=== PATIENT | male | born 1955 | race Caucasian/White ===

== ENCOUNTER 2018-10-15 11:09 | Emergency (ER) | payer MEDICAID, OTHER ==
[~2018-10-15] VITALS: Ht 165.1 cm; Wt 60.0 kg
[2018-10-15] MEDS ORDERED: QUET300T19 PO (11:22)
[2018-10-15] MEDS ORDERED: VALP250C3 PO (11:22)
[2018-10-15] MEDS ORDERED: DIPH50CA38 PO (11:22)
[2018-10-15] MEDS ORDERED: HALO10TA13 PO (11:22)
[2018-10-15] MEDS ORDERED: DIVA250T45 PO (11:22)
[2018-10-15] MEDS ORDERED: CHLO100T22 PO (11:22)
[2018-10-15 11:55] LABS: BASOPHILS % 0.4 % (0.0-2.0); EOSINOPHILS % 0.1 % (0.0-5.0); HEMATOCRIT. 32.7 % (42.0-52.0); HEMOGLOBIN. 11.5 g/dL (14.0-18.0); LYMPHOCYTES % 17.6 % (20.0-50.0); MEAN CORPUSCULAR HEMOGLOBIN 31.5 pg (28.0-32.0); MEAN CORPUSCULAR VOLUME 89.8 fL (80.0-94.0); MEAN PLATELET VOLUME 7.5 fl (7.4-10.4); MONOCYTES % 8.8 % (2.0-8.0); NEUTROPHILS % 73.1 % (40.0-76.0); PLATELET 256 x1000/uL (130-400); RED BLOOD CELL COUNT 3.64 mill/uL (4.7-6.1); RED CELL DISTRIBUTION WIDTH 13.6 % (11.6-14.6)
[2018-10-15 12:02] LABS: CHLORIDE 103 mEq/L (98-107)
[2018-10-15 12:03] LABS: INR 1.1
[2018-10-15] MEDS: HALOPERIDOL LACTATE 5MG/ML VIAL IM ONE ×2 (18:43→18:49)
[2018-10-15] MEDS ORDERED: OLANZAPINE 10 MG/VIAL IM ONE (19:00)
[2018-10-15 19:43] LABS: ETHANOL BLOOD < 10 mg/dL
[2018-10-16] MEDS ORDERED: LORAZEPAM 2MG/ML CPJ IM ONE (10:00)
[2018-10-16] MEDS ORDERED: DIPHENHYDRAMINE 50MG/ML VIAL IM ONE (10:00)
[2018-10-16] MEDS ORDERED: HALOPERIDOL LACTATE 5MG/ML VIAL IM ONE ×3 (10:00→20:30)
[2018-10-16] MEDS ORDERED: ZIPRASIDONE MESYLATE 20MG/VIAL IM ONE (14:00)
[2018-10-17] MEDS ORDERED: HALOPERIDOL LACTATE 5MG/ML VIAL IM ONE (09:15)
[2018-10-17] MEDS ORDERED: LORAZEPAM 2MG/ML CPJ IM ONE (09:45)
[2018-10-17] MEDS ORDERED: OLANZAPINE 10 MG/VIAL IM ONE (11:00)
[2018-10-17] MEDS ORDERED: DIPHENHYDRAMINE 50MG CAPSULE PO SCH (14:30)
[2018-10-17] MEDS ORDERED: HALOPERIDOL 5MG TABLET PO SCH (14:30)
[2018-10-17] MEDS: LORAZEPAM 1MG TABLET PO SCH (16:52)
[2018-10-18] MEDS: LORAZEPAM 1MG TABLET PO SCH (01:44)
[2018-10-18] MEDS ORDERED: OLANZAPINE 10 MG/VIAL IM ONE (11:15)
[2018-10-18] MEDS ORDERED: LORAZEPAM 2MG/ML CPJ IM ONE (11:15)
[2018-10-18] MEDS ORDERED: DIPHENHYDRAMINE 50MG CAPSULE PO PRN ×2 (12:15→12:16)
[2018-10-18] MEDS ORDERED: LORAZEPAM 1MG TABLET PO PRN ×2 (12:15→12:16)
[2018-10-18] MEDS ORDERED: HALOPERIDOL 5MG TABLET PO PRN ×2 (12:15→12:16)
[2018-10-18] MEDS ORDERED: OLANZAPINE 10 MG/VIAL IM NR (12:45)
[2018-10-18] MEDS ORDERED: LORAZEPAM 2MG/ML CPJ IM NR (12:45)
[2018-10-18 20:59] VITALS: BP 148/98
== END 2018-10-18 21:12 | disposition home or self-care (01) ==
LOC: ER 11:09 → SUPCPDRO 10-17 14:28 → CANBEDREQ 10-17 14:36 → ER 10-18 21:12
DX: S42.201A Unspecified fracture of upper end of right humerus, initial encounter for closed fracture (principal); F41.9 Anxiety disorder, unspecified; R56.9 Unspecified convulsions; X58.XXXA Exposure to other specified factors, initial encounter; Y93.9 Activity, unspecified; Y92.9 Unspecified place or not applicable
CPT/HCPCS: 36415; 73020; 73060; 73090; 80053; 80307; 80320; 80329; 85025; 85610; 93971; 96372; 99284; J1200; J1630; J2060; J3486; J3490; Q0163; A4565; G0480